=== PATIENT | male | born 1955 | race Caucasian/White ===

== ENCOUNTER 2021-07-11 10:41 | Emergency (ER) | payer SELFPAY ==
[2021-07-11 11:39] VITALS: BP 150/79; PULSE 77; RESP 18; TEMP 36.6; O2SAT 97; BMI 19.5
[2021-07-11 11:56] LABS: Basophils # 0.1 10^3/uL (0.0-0.1); Basophils % 0.7 %; Eosinophils % 0.1 %; Hematocrit 42.9 % (42.0-52.0); Hemoglobin 14.5 g/dL (11.7-16.6); Lymphocytes # 0.8 10^3/uL (0.8-4.8); Mean Corpuscular HGB Conc 33.8 g/dL (30.0-36.0); Mean Corpuscular Hemoglobin 31.4 pg (28.0-34.0); Mean Corpuscular Volume 92.9 fl (80-94); Monocytes # 0.7 10^3/uL (0.2-0.9); Monocytes % 8.1 %; Neutrophils # 6.52 10^3/uL (1.8-7.7); Neutrophils % 80.9 %; Nucleated Red Blood Cells % 0 %; Platelet Count 318 10^3/cmm (130-400); Red Blood Count 4.62 10^6/uL (4.1-5.3); Red Cell Distribution Width 12.4 % (12.1-15.1); White Blood Count 8.1 10^3/uL (4.0-10.0)
[2021-07-11 12:19] LABS: Alanine Aminotransferase 9 U/L (0-41); Albumin Level 4.2 g/dL (3.5-5.2); Alkaline Phosphatase 68 IU/L (40-130); Anion Gap 18.1 (5-19); Aspartate Amino Transferase 20 U/L (0-40); Blood Urea Nitrogen 13 mg/dL (8-23); Calcium 8.7 mg/dL (8.5-10.5); Carbon Dioxide 23 mmol/L (22-29); Chloride 97 mmol/L (98-107); Globulin 2.6 g/dL (1.3-4.6); Glomerular Filtration Rate 113.2 mL/min (90-130); Glucose 101 mg/dL (65-115); Lipase 15 U/L (13-60); Osmolality Calculated 278 mOsm/kg (285-295); Potassium 4.1 mmol/L (3.5-5.1); Sodium 134 mmol/L (136-145); Total Bilirubin 0.5 mg/dL (0.15-1.2); Total Protein 6.8 g/dL (6.6-8.7)
[2021-07-11 13:40] LABS: Urine Appearance Hazy (CLEAR); Urine Color Yellow (Yellow)
[2021-07-11 13:41] LABS: Add Urine Culture? No; Add Urine Microscopic? YES; Bacteria Urine TRACE /hpf; Bilirubin Urine Neg (Negative); Blood Urine 3+ (Negative); Glucose Urine UA Norm (Normal); Ketones Urine 1+ (Negative); Leukocyte Esterase Urine Negative (Negative); Mucus Urine 1+ /hpf; Nitrate Urine Negative (Negative); Protein Urine Neg (Negative); Specific Gravity, Urine 1.025 (1.005-1.030); Urobilinogen Urine Norm (Negative); WBC Urine 0-4 /hpf (0-5); pH Urine 5 (5-7)
--- NOTE | 2021-07-11 15:20 | CTR_ITS ---
PROCEDURE INFORMATION: Exam: CT Abdomen And Pelvis Without Contrast Exam date and time: 07/11/2021 3:20 PM Age: 66 years old Clinical indication: Abdominal pain; Patient HX: L flank pain x1 day, hematuria; Additional info: L flank pain, hematuria, constipation TECHNIQUE: Imaging protocol: Computed tomography of the abdomen and pelvis without contrast. Total images: 267 Radiation optimization: All CT scans at this facility use at least one of these dose optimization techniques: automated exposure control; mA and/or kV adjustment per patient size (includes targeted exams where dose is matched to clinical indication); or iterative reconstruction. COMPARISON: No relevant prior studies available. RADIATION DOSE METRICS: Total DLP (mGy-cm): 456.51 FINDINGS: Lungs: Limited assessment of the lung bases fails to reveal evidence for active cardiopulmonary process. COPD/chronic bronchitis. Liver: No visible hepatic mass or cystic structure. Gallbladder and bile ducts: Unremarkable. No calcified stones. No ductal dilation. Pancreas: Pancreas is unremarkable. No visible pancreatic ductal ectasia. Spleen: Few calcified splenic granulomas. Spleen otherwise unremarkable. Adrenal glands: Adrenal glands unremarkable. Kidneys and ureters: Evidence of very mild left pelvicaliectasis. No visible nephrolithiasis or ureterolithiasis bilaterally. Cannot exclude a recently passed left ureteral stone. No right hydronephrosis. No perinephric fluid bilaterally. Unable to exclude or diagnose pyelonephritis or pyelitis without intravenous contrast. Stomach and bowel: Diverticulosis coli, primarily the sigmoid colon, without visible evidence of acute diverticulitis. Nonobstructive bowel pattern. No visible adynamic or reactive ileus. Heavy fecal residue consistent with constipation. Appendix: The appendix is visualized and appears noninflamed. Intraperitoneal space: No visible pneumoperitoneum or intraperitoneal ascites. Vasculature: The abdominal aorta is nonaneurysmal. Moderate arterial sclerotic disease. Lymph nodes: Unremarkable. No visible enlarged lymph nodes. Urinary bladder: Urinary bladder unremarkable. No filling defect. No visible bladder stone. Reproductive: Prostate hypertrophy. Bilateral small hydroceles. Bones/joints: No visible acute osseous abnormality. Soft tissues: Cachexia. CT/CT kidney stone [id number] IMPRESSION: 1. Evidence of very mild left pelvicaliectasis. No visible nephrolithiasis or ureterolithiasis bilaterally. Cannot exclude a recently passed left ureteral stone. 2. Diverticulosis coli without visible evidence for acute diverticulitis. 3. Constipation.
--- NOTE | 2021-07-11 17:52 | ED_ITS ---
HPI - Abdominal Pain General: Chief Complaint: Abdominal Pain Stated Complaint: Pain in L Side Time Seen by Provider: 07/11/21 10:47 Source: patient Mode of arrival: ambulatory Limitations: no limitations History of Present Illness: HPI narrative: 66-year-old male states been having left flank pain through the day. States he felt like it was muscular pain but also radiated down to his groin no history of kidney stones he states that over the last 1 to 2 hours pain is actually resolved he is currently pain-free denies any vomiting diarrhea over fevers. Associated Symptoms: Denies chills, diarrhea, fever(s), nausea and vomiting Review of Systems Const: Denies: fever(s), chills, body aches or change in appetite Eyes: Denies: blurry vision or eye discomfort ENMT: Denies: throat pain or dental pain Card: Denies: chest pain Resp: Denies: dyspnea GI: Denies: abdominal pain, nausea, vomiting or diarrhea : Reports: flank pain Musc: Denies: neck pain or back pain Skin/Breast: Denies: rash Neuro: Denies: headache(s) Psych: Denies: depression Marck/Lymph: Denies: easy bruising All/Imm: Denies: urticaria Physical Exam Const: COMMON NORMALS: no acute distress, patient oriented x3 and healthy appearing HENMT: COMMON NORMALS: normocephalic and atraumatic HEAD & SCALP: normocephalic and atraumatic Eye: COMMON NORMALS: Equal, round and reactive pupils present and EOMs intact bilaterally PUPIL: Yes Equal, round and reactive pupils present Neck/C-Spine: COMMON NORMALS: full ROM and supple Chest: COMMONS NORMALS: normal inspection of the chest and normal palpation of entire chest wall Resp: COMMON NORMALS: normal respiratory effort, No retractions, No use of accessory muscles and clear to auscultation bilaterally AUSCULTATION: clear to auscultation bilaterally Cardio: COMMON NORMALS: regular rate, regular rhythm and No murmurs present (Cardio) RATE: regular rate RHYTHM: regular rhythm GI: COMMON NORMALS: Normal to inspection, nondistended, normoactive bowel sounds present, Soft to palpation, non-tender and no masses PALPATION: Yes Soft to palpation Extremity: COMMON NORMALS: normal to inspection and full ROM Neuro: COMMON NORMALS: patient oriented x3, moves all extremities and no focal motor deficits Psych: COMMON NORMALS: mental status grossly normal, Normal thought process present and cooperative THOUGHT PROCESS: Normal thought process present Skin: COMMON NORMALS: no rashes or lesions noted and no wounds GENERAL SKIN EXAM: no rashes or lesions noted Course Vital Signs: Vital signs: Vital Signs Temperature 97.9 F 07/11/21 11:39 Pulse Rate 77 07/11/21 11:39 Respiratory Rate 18 07/11/21 11:39 Blood Pressure 150/79 07/11/21 11:39 Pulse Oximetry 97 07/11/21 11:39 MDM - Abdominal Pain MDM Narrative: Medical decision making narrative: Patient presents here with left flank pain since resolved could be muscular patient also could have recently passed kidney stone blood work CT here normal we will give him follow- up with Dr. Simms place him on [facility] abdominal exam here is benign he stable for discharge return if worsening. Lab Data: Labs: Lab Results 07/11/21 07/11/21 07/11/21 11:47 11:48 11:48 WBC 8.1 10^3/uL 10^3/ uL (4.0-10.0) RBC 4.62 10^6/uL 10^6 /uL (4.1-5.3) Hgb 14.5 g/dL g/dL (11.7-16.6) Hct 42.9 % % (42.0-52.0) MCV 92.9 fl fl (80-94) MCH 31.4 pg pg (28.0-34.0) MCHC 33.8 g/dL g/dL (30.0-36.0) RDW 12.4 % % (12.1-15.1) Plt Count 318 10^3/cmm 10^3 /cmm (130-400) MPV 9.0 fL fL (7.4-10.4) Neut % (Auto) 80.9 % % Lymph % (Auto) 10.0 % % Hernando % (Auto) 8.1 % % Eos % (Auto) 0.1 % % Baso % (Auto) 0.7 % % Neut # (Auto) 6.52 10^3/uL 10^3 /uL (1.8-7.7) Lymph # (Auto) 0.8 10^3/uL 10^3/ uL (0.8-4.8) Hernando # (Auto) 0.7 10^3/uL 10^3/ uL (0.2-0.9) Eos # (Auto) 0.0 10^3/uL 10^3/ uL (0.0-0.8) Baso # (Auto) 0.1 10^3/uL 10^3/ uL (0.0-0.1) Nucleated RBC % (a uto) 0 % % Nucleated RBCs # 0.0 /100WBC /100W BC Sodium 134 mmol/L L mmol /L (136-145) Potassium 4.1 mmol/L mmol/L (3.5-5.1) Chloride 97 mmol/L L mmol/ L (98-107) Carbon Dioxide 23 mmol/L mmol/L (22-29) Anion Gap 18.1 (5-19) BUN 13 mg/dL mg/dL (8-23) Creatinine 0.7 mg/dL mg/dL (0.7-1.2) GFR Calculation 113.2 mL/min mL/m in (90-130) Glucose 101 mg/dL mg/dL (65-115) Calculated Osmolal ity 278 mOsm/kg L mOs m/kg (285-295) Calcium 8.7 mg/dL mg/dL (8.5-10.5) Total Bilirubin 0.5 mg/dL mg/dL (0.15-1.2) AST 20 U/L U/L (0-40) ALT 9 U/L U/L (0-41) Alkaline Phosphata se 68 IU/L IU/L (40-130) Total Protein 6.8 g/dL g/dL (6.6-8.7) Albumin 4.2 g/dL g/dL (3.5-5.2) Globulin 2.6 g/dL g/dL (1.3-4.6) Lipase 15 U/L U/L (13-60) Urine Color Yellow (Yellow) Urine Appearance Hazy A (CLEAR) Urine pH 5 (5-7) Ur Specific Gravit y 1.025 (1.005-1.030) Urine Protein Neg (Negative) Urine Glucose (UA) Norm (Normal) Urine Ketones 1+ H (Negative) Urine Blood 3+ H (Negative) Urine Nitrate Negative (Negative) Urine Bilirubin Neg (Negative) Urine Urobilinogen Norm mg/dL mg/dL (Negative) Ur Leukocyte Zenia ase Negative (Negative) Urine RBC 5-10 /hpf H /hpf (0-2) Urine WBC 0-4 /hpf H /hpf (0-5) Ur Squamous Epith Cells None /hpf /hpf (0-5) Amorphous Sediment Not Reportable Urine Bacteria Trace /hpf /hpf (NONE) Urine Mucus 1+ /hpf /hpf Imaging Data ^: CT Abd/Pel: Attestation: I personally reviewed and interpreted this imaging study as follows: Radiologist's impression: [id number] [address] [address] Scan Report Signed Patient: Inga Roldan Unit #: [id number] : 1955 Age/Sex: 66 / M ADM Date: 07/11/21 Loc: ER Room/Bed: Attending Dr: Ordering Provider/Ordering MD: Kristin Epperson Date of Service: 07/11/21 Procedure(s): CT kidney stone [id number] Accession Number(s): [id number] Report Number: [id number] PROCEDURE INFORMATION: Exam: CT Abdomen And Pelvis Without Contrast Exam date and time: 07/11/2021 3:20 PM Age: 66 years old Clinical indication: Abdominal pain; Patient HX: L flank pain x1 day, hematuria; Additional info: L flank pain, hematuria, constipation TECHNIQUE: Imaging protocol: Computed tomography of the abdomen and pelvis without contrast. Total images: 267 Radiation optimization: All CT scans at this facility use at least one of these dose optimization techniques: automated exposure control; mA and/or kV adjustment per patient size (includes targeted exams where dose is matched to clinical indication); or iterative reconstruction. COMPARISON: No relevant prior studies available. RADIATION DOSE METRICS: Total DLP (mGy-cm): 456.51 FINDINGS: Lungs: Limited assessment of the lung bases fails to reveal evidence for active cardiopulmonary process. COPD/chronic bronchitis. Liver: No visible hepatic mass or cystic structure. Gallbladder and bile ducts: Unremarkable. No calcified stones. No ductal dilation. Pancreas: Pancreas is unremarkable. No visible pancreatic ductal ectasia. Spleen: Few calcified splenic granulomas. Spleen otherwise unremarkable. Adrenal glands: Adrenal glands unremarkable. Kidneys and ureters: Evidence of very mild left pelvicaliectasis. No visible nephrolithiasis or ureterolithiasis bilaterally. Cannot exclude a recently passed left ureteral stone. No right hydronephrosis. No perinephric fluid bilaterally. Unable to exclude or diagnose pyelonephritis or pyelitis without intravenous contrast. Stomach and bowel: Diverticulosis coli, primarily the sigmoid colon, without visible evidence of acute diverticulitis. Nonobstructive bowel pattern. No visible adynamic or reactive ileus. Heavy fecal residue consistent with constipation. Appendix: The appendix is visualized and appears noninflamed. Intraperitoneal space: No visible pneumoperitoneum or intraperitoneal ascites. Vasculature: The abdominal aorta is nonaneurysmal. Moderate arterial sclerotic disease. Lymph nodes: Unremarkable. No visible enlarged lymph nodes. Urinary bladder: Urinary bladder unremarkable. No filling defect. No visible bladder stone. Reproductive: Prostate hypertrophy. Bilateral small hydroceles. Bones/joints: No visible acute osseous abnormality. Soft tissues: Cachexia. CT/CT kidney stone [id number] IMPRESSION: 1. Evidence of very mild left pelvicaliectasis. No visible nephrolithiasis or ureterolithiasis bilaterally. Cannot exclude a recently passed left ureteral stone. 2. Diverticulosis coli without visible evidence for acute diverticulitis. 3. Constipation. Dictated By: Roney Carroll Signed By: Roney Carroll Signed Date/Time: 07/11/21 1628 DD/ 1520 Discharge Plan Discharge Patient Disposition: Home Clinical Impression: Left flank pain Condition: Stable Prescriptions: New Naprosyn 500 mg tablet 500 mg PO BID PRN (Reason: pain) Qty: 20 RF: 0 Discharge Orders: Discharge ED (Routine); Ordered 07/11/21 Ordered By: Doug Murphy Referrals: Joel Simsm MD [Physician] - 1-3 days Discharge Diet: Advance as tolerated Discharge Activity: Resume usual activity Patient Instructions: Flank Pain (ED) Coding Level of Care Code ED At Risk Paraprofessional for Zeferino Perez
[2021-07-11 18:45] VITALS: BP 148/79; PULSE 72; RESP 18; O2SAT 96
== END 2021-07-11 18:45 | disposition home or self-care (01) ==
PROVIDERS: Physician Assistant; Emergency Provider Emergency Medicine
DX: R10.9 Unspecified abdominal pain (principal)
CPT/HCPCS: 36415; 74176; 80053; 81001; 83690; 85025; 99283